=== PATIENT | female | born 1995 | race Caucasian/White ===

== ENCOUNTER 2025-08-25 07:44 | Inpatient (IN) ==
[2025-08-25] MEDS ORDERED: LIDOCAINE 1% LOCAL 20 ML VIAL INFIL PRN (08:02)
[2025-08-25] MEDS ORDERED: OXYTOCIN 30 UNITS/NSS 30 UNITS/500 ML BAG IV PRN ×3 (08:02→20:40)
--- NOTE | 2025-08-25 08:02 | History & Physical Report ---
Date of Service August 25, 2025 Assessment & Plan (1) Encounter for induction of labor: (2) Demyelinating disease: (3) Lupus anticoagulant positive: Plan 30 y/o at 41w 7 with CRISTIAN 08/17/25 as determined by ultrasound who presents today for induction of labor. Rh(+), rubella immune pitocin only vs starting with rainey bulb (in office cervical exam 08/16/25 1.5/75/-2) epidural if desired AROM when indicated IV fluids anticipate . Admission and Anticipated Discharge Date Admission Date: August 25, 2025 History of Present Illness Chief Complaint: induction of labor Primary Care Provider: LINDA Balderas Lorri is a 30 y/o at 41w 09/22 with CRISTIAN 08/17/25 as determined by ultrasound who presents today for induction of labor. (-) contractions; (+) movement; (-) fluid loss; (-) bloody show External FHT and external uterine monitors used; Category I tracing; moderate variability. Had regular appointments with OB. Blood Type A Positive 01/05/25 Antibody Screen NEGATIVE 01/05/25 Hgb 12.8 g/dl (12.0-16.0) 05/25/25 Hct 36.3 % (37.0-47.0) L 05/25/25 MCV 92.9 fL (80.0-100.0) 01/05/25 Plt Count 267 K/uL (130-400) 01/05/25 Rubella IgG Antibody Immune (Immune) 01/05/25 Treponema pallidum Ab Negative (Negative) 05/25/25 Hep Bs Antigen Negative (Negative) 01/05/25 Hepatitis C Antibody Negative (Negative) 01/05/25 HIV 1&2 Ab/P24 Ag 4thGn Negative (Negative) 01/05/25 Glucose 1 Hr 50 gm 134 mg/dl (70-130) H 05/25/25 OB Optional Labs: Chlamydia trachomatis RNA Not Detected (NotDetected) 01/05/25 Neisseria gonorrhoeae RNA Not Detected (NotDetected) 01/05/25 Thyroid Stimulating Hormone (TSH) 1.873 uIu/ml (0.300-4.500) 06/08/24 Allergies Allergy/AdvReac Type Severity Reaction Status Date / Time gluten Allergy Unknown Verified 12/10/25 08:20 pineapple Allergy Itching Verified 08/25/25 08:20 Home Medications Medication Instructions Recorded Confirmed Type famotidine 20 mg tablet (Pepcid) 40 mg PO DAILY 10/15/23 08/25/25 History 21-iron fu-folic acid 1 tab PO DAILY 12/28/24 08/25/25 History [ Complete] Patient History Medical History (Updated 08/25/25 @ 08:18 by Sue Melendez RN) Stomach ulcer Varicella vaccination Mass of left ankle Breast lump in female hormonal-resolved Brain lesion stable- follow up with neuro Surgical History (Updated 08/25/25 @ 08:18 by Sue Melendez, CAROL) S/P foot surgery, left 2023- no hardware Hx of cholecystectomy 2019 Family History Mother Miscarriage Denies family history of Ovarian cancer Prostate cancer Deep vein thrombosis Breast cancer Lung cancer Colorectal cancer Pulmonary embolism Social History (Updated 08/25/25 @ 08:19 by Sue Melendez RN) Smoking Status: Never smoker Second Hand Exposure: No; Do You Dip or Chew Tobacco: No; Hx Alcohol Use: No Hx Substance Use: No Preferred Language: Tuvaluan Communication Ability: Effective Visual Impairment: No Limitations Hearing Ability: Normal Pattern Maker Required: No Beliefs That Will Affect Care: None marital status: marital status details: William Sellers (Bill) [phone]) [phone] Current Living Situation: Spouse Current Living Situation Comment: lives with spouse, cat-spouse changing litter current occupational status: employed current occupation: [employer] at [employer] How many Children do You have: 0 Feels Safe at Home: Yes Safety Concerns: Feels Safe At This Time Childhood Exposure to Second-Hand Smoke: No Diet: gluten free Diet Comment: no formal dx of celiac but gluten free helps sx of h/a, lack of energy, GI caffeine: No during the past year weight has: remained stable Dental Care, Regularly: Yes Physical Activity Frequency: 3-4 Times per Week Physical Activity Frequency Comment: walks, gym Seatbelt Use: always Sunscreen Use: Yes Assistive Devices: None Review of Systems Denies fever, chills, sweats Denies shortness of breath, difficulty breathing, chest pain, palpitations, chest pressure. Denies breast pain. Denies dysuria. Denies headache or changes in vision. Physical Exam Physical Exam: General: Alert, oriented. No acute distress. Cardiac: Regular rate and rhythm, no murmurs/rubs/gallops. Respiratory: CTA BL, no increased work of breathing Abdomen: soft, gravid, cephalic position Lower Extremities: No lower extremity edema or swelling. No deep calf pain. Steve's negative bilaterally Supervising Physician Co-Signing Physician Notes Resident Physician Supervision Note: I interviewed and examined the patient. Discussed with Dr. Ovalle and agree with findings and plan as documented in the note. Any exceptions or clarifications are listed here: Pt is a 30yo who presents for scheduled postdates induction of labor at 41w1d. uncomplicated . Cvx 2.5/80/-2. Plan for pitocin 2x2, defer rainey balloon. Epidural PRN, AROM when able. GBS neg, Rh pos, RI. Anticipate . Documented By: Zulema Ivey MD
[2025-08-25 08:40] LABS: Hematocrit (blood only) 40.4 % (37.0-47.0); Hemoglobin 14.3 g/dL (12.0-16.0); Mean Corpuscular Hemoglobin 32.4 pg (25.0-34.0); Mean Corpuscular Volume 91.6 fL (80.0-100.0); Platelet Count 198 K/uL (130-400); RDW Standard Deviation 43.0 fL (36.4-46.3); Red Blood Count 4.41 M/uL (4.20-5.40); White Blood Count 9.44 K/ul (4.8-10.8)
[2025-08-25] MEDS: LACTATED RINGER'S 1,000 ML IV PRN (09:42)
[2025-08-25] MEDS: OXYTOCIN 30 UNITS/NSS 30 UNITS/500 ML BAG IV PRN (09:47)
[2025-08-25] MEDS: ACETAMINOPHEN 325 MG TAB PO PRN ×2 (13:29→20:57)
--- NOTE | 2025-08-25 14:47 | Labor Progress Brief Note ---
Date of Service August 25, 2025 Subjective Reason For Note: Routine Evaluation Doing well-not feeling too much discomfort with contractions. Review of Systems All systems reviewed & are unremarkable except as noted in HPI & below Assessment & Plan (1) Encounter for induction of labor: Plan: Pt admitted for induction of labor for post-dates. Continue pitocin 2x2 s/p AROM Epidural PRN Admission and Anticipated Discharge Date Admission Date: August 25, 2025 Physical Exam Constitutional: WD/WN, vitals as above Respiratory: normal respiratory effort Psychiatric: Orientation: alert and oriented x 3 Genitourinary: normal external appearance Manual OB Exam: + cervical dilation 3 cm, + cervical effacement 80%, + station -2 and + amniotic fluid clear AROM performed in normal sterile fashion with head well applied to the cervix, cervical exam as above. Return of clear fluid noted. Pt tolerated well. Results & Data Vital Signs (Past 12 Hours) Vital Signs Temp Pulse Resp BP 08/25/25 13:50 104 H 108/75 08/25/25 12:50 99 H 110/74 08/25/25 12:17 103 H 153/91 H 08/25/25 11:00 18 08/25/25 11:00 36.8 C 18 08/25/25 10:51 109 H 127/81 08/25/25 09:50 108 H 118/78 08/25/25 08:09 36.8 C 16 08/25/25 08:05 126 H 121/83 Coding Level of Care Code None Diagnoses Encounter for induction of labor Z34.90
--- NOTE | 2025-08-25 15:54 | Anesthesiology Consultation ---
Date of Service August 25, 2025 Assessment & Plan (1) Encounter for pre-operative examination: Chart Review Chart Review: Acceptable Risk for Labor Epidural History Height/Weight Height: 5 ft 4 in Weight: 94.801 kg Allergies Allergy/AdvReac Type Severity Reaction Status Date / Time gluten Allergy Unknown Verified 08/25/25 08:20 pineapple Allergy Itching Verified 08/25/25 08:20 Medications Home Medications Medication Instructions Recorded Confirmed Last Taken famotidine 20 mg tablet (Pepcid) 40 mg PO DAILY 10/15/23 08/25/25 08/25/25 21-iron fu-folic acid 1 tab PO DAILY 12/28/24 08/25/25 08/24/25 [ Complete] Active Medications Generic Name Dose Route Start Last Admin Trade Name Freq PRN Reason Stop Dose Admin Acetaminophen 650 mg 08/25/25 13:08 08/25/25 13:29 Acetaminophen 325 Mg Tab PO 09/24/25 13:07 650 mg Q4H PRN Administration Headache Lactated Ringer's 1,000 mls @ 125 mls/hr 08/25/25 08:02 08/25/25 15:56 Lr IV 08/27/25 08:01 999 mls/hr .Q8H PRN Administration L&D Protocol Protocol Oxytocin 30 units in 500 mls @ 14 mls/hr 08/25/25 09:20 08/25/25 13:30 Pitocin 30 Units/Nss IV 08/27/25 09:19 0.84 units/hr .Q24H PRN 14 mls/hr Labor Induction/Augmentation Titration Protocol 0.84 UNITS/HR Past Medical History Medical History (Updated 08/25/25 @ 15:59 by William Costa MD) Demyelinating disease Stomach ulcer Varicella vaccination Mass of left ankle Breast lump in female hormonal-resolved Brain lesion stable- follow up with neuro Past Family History Family History Mother Miscarriage x 2 Denies family history of Ovarian cancer Prostate cancer Deep vein thrombosis Breast cancer Lung cancer Colorectal cancer Pulmonary embolism Past Surgical History Surgical History S/P foot surgery, left 2023- no hardware Hx of cholecystectomy 2019 Social History Smoking Status: Never smoker Do You Dip or Chew Tobacco: No Hx Alcohol Use: No Hx Substance Use: No Physical Exam Vital Signs Last Vital Signs Temp 36.8 C 08/25/25 11:00 Pulse 75 08/25/25 15:51 Resp 18 08/25/25 11:00 BP 122/69 08/25/25 15:50 Pulse Ox 99 08/25/25 15:51 Testing Laboratory Results 08/25/25 08:25 Blood Type A Positive 08/25/25 08:25 Antibody Screen NEGATIVE 08/25/25 08:25
[2025-08-25] MEDS: BUPIVACAINE 0.25% PF 30 ML VIAL ONE (16:25)
[2025-08-25] MEDS: LIDOCAINE 2%/EPINEPHRINE 1:200,000 20 ML PF ONE (16:25)
[2025-08-25] MEDS: fentANYL 2 MCG/ML BUPIVacaine 0.125%-NSS 100ML BAG ONE (16:25)
[2025-08-25] MEDS: SODIUM CHLORIDE 0.9% PF INJ 10 ML VIAL ONE (16:28)
[2025-08-25] MEDS ORDERED: SODIUM CHLORIDE 0.9% PF INJ 10 ML VIAL EPI PRN (16:29)
[2025-08-25] MEDS ORDERED: ROPIVACAINE 0.5% PF 5 MG/ML 20 ML VIAL EPI PRN (16:29)
[2025-08-25] MEDS ORDERED: BUPIVACAINE 0.25% PF 30 ML VIAL EPI PRN (16:29)
[2025-08-25] MEDS ORDERED: NALOXONE HCL 1 MG in SODIUM CHLORIDE 0.9% 1,000 ML IV PRN (16:29)
[2025-08-25] MEDS ORDERED: NALOXONE HCL 0.4 MG/1 ML VIAL/CARP IV PRN (16:29)
[2025-08-25] MEDS ORDERED: ONDANSETRON INJ 2 MG/ML 2 ML VIAL IV PRN (16:29)
[2025-08-25] MEDS ORDERED: fentANYL 2 MCG/ML BUPIVacaine 0.125%-NSS 100ML BAG EPI PRN (16:29)
[2025-08-25] MEDS ORDERED: LIDOCAINE 2% MPF LOCAL 5 ML VIAL EPI PRN (16:29)
[2025-08-25] MEDS: BUPIVACAINE 0.25% PF 30 ML VIAL EPI STA (16:38)
[2025-08-25] MEDS: SODIUM CHLORIDE 0.9% PF INJ 10 ML VIAL EPI STA (16:39)
[2025-08-25] MEDS: LIDOCAINE 2%/EPINEPHRINE 1:200,000 20 ML PF EPI STA (16:39)
--- NOTE | 2025-08-25 20:36 | Delivery Summary ---
Vaginal Delivery Summary Date of Service August 25, 2025 Vaginal Delivery Summary and 2nd Degree LAC Pre-delivery diagnoses: IUP at 41 weeks 1 day Post-delivery diagnoses: Same Procedure: Spontaneous vaginal delivery Surgeon: Zulema Ivey MD Complications: none Findings: Viable male . Apgars: 8/9. Weight pending, please see nursery records Estimated QBL: 64 cc Description of delivery: The patient progressed to complete with epidural anesthesia. She then began to push. She spontaneously vaginally delivered a viable from the cephalic presentation. The head delivered followed without delay by anterior shoulder, posterior shoulder, then the body. No nuchal. The baby was placed on mother's abdomen and a spontaneous cry was heard. Delayed cord clamping was employed, and the cord was doubly clamped and cut. Cord blood was obtained. The placenta was delivered spontaneously intact with a 3-vessel cord. The uterus and vagina were swept of clots and debris. IV pitocin was given. The uterus became firm. The cervix, vagina, and perineum were inspected. 2nd degree laceration was repaired with 3-0 chromic under epidural anesthesia. Excellent hemostasis was observed The mother and baby are recovering in stable and good condition in the room. Sponge, needle and instrument counts were correct x 2. [facility] Vaginal Delivery Charge Delivery Type Details: and 2nd Degree LAC
[2025-08-25] MEDS ORDERED: HYDROCORTISONE ACETATE 25 MG SUPP PR PRN (20:40)
[2025-08-25] MEDS: IBUPROFEN 600 MG TAB PO PRN (20:56)
[2025-08-25] MEDS: DOCUSATE SODIUM 100 MG CAP PO SCH (20:56)
[2025-08-25] MEDS: BENZOCAINE 20% SPRY 85 APPLN/85 GM CAN EXT PRN (20:57)
[2025-08-25] MEDS: DIPHTHER/TETAN/PERTUS Vaccine (Tdap, Adol/Adult) 0.5mL IM ONE (21:03)
--- NOTE | 2025-08-25 21:12 | Anesthesia Procedure Note ---
Date of Service August 25, 2025 Anesthesia Post Epidural Note Vital Signs Vital Signs: Temp Pulse Resp BP Pulse Ox 36.9 C 101 H 20 123/68 95 08/25/25 18:55 08/25/25 21:00 08/25/25 21:00 08/25/25 21:00 08/25/25 20:56 Pain Intensity Episiotomy/Laceration: Pain Intensity: 4 Notes Mental Status: alert / awake / arousable and participated in evaluation Nausea / Vomiting: adequately controlled Pain: adequately controlled Airway Patency, RR, SpO2: stable & adequate BP & HR: stable & adequate Hydration State: stable & adequate Neuraxial Anesthesia: was administered and sensory block is resolving Anesthetic Complications: no major complications apparent Epidural: Removed without complications and With tip intact
[2025-08-25] MEDS: LACTATED RINGER'S 1,000 ML IV SCH (23:07)
--- NOTE | 2025-08-26 06:27 | Obstetrical Progress Note ---
Date of Service August 26, 2025 Assessment & Plan (1) examination following vaginal delivery: Plan 30 y/o ppd #1 s/p . uncomplicated. Feels well today. Vital signs stable Continue post- care Encourage ambulation and Pain controlled with ibuprofen Hgb stable Anticipate home discharge tomorrow, follow up with Dr. Ivey in 6 weeks. Admission and Anticipated Discharge Date Admission Date: August 25, 2025 Supervising Physician Co-Signing Physician Notes Resident Physician Supervision Note: I interviewed and examined the patient. Discussed with Dr. Ovalle and agree with findings and plan as documented in the note. Any exceptions or clarifications are listed here: Pt is PPD1 from , doing well, meeting milestones. . VS wnl. Uterus firm at umbilicus. Continue routine care, likely DC home tomorrow. Documented By: Zulema Ivey MD Subjective 30 y/o ppd #1 s/p . uncomplicated. Ambulation: ambulating normally Voiding: no voiding problems Passing Gas:: Yes Diet Tolerance:: regular diet Lochia:: Small Feeding Type:: breast Current Pain Level: 3/10 Resting comfortably this AM in NAD. Denies [place], CP, SOB, N/V/D, LE pain/swelling. Physical Exam Physical Exam: General: patient resting comfortably, NAD, non-toxic in appearance, A&Ox4, answers questions appropriately. Skin: warm, dry, intact HEENT: atraumatic, normocephalic, anicteric sclera, conjunctiva without injection, moist mucus membranes. Heart: clinically well perfused Lungs: equal rise & fall of chest, normal work of breathing, no respiratory distress Abd: +BS, soft, NT/ND, uterine fundus firm at umbilicus Ext: no LE edema or deep calf pain, Steve's neg. Neuro: no focal neurologic deficits, moving all extremities. Results & Data Vital Signs (Past 12 Hours) Vital Signs Temp Pulse Pulse Resp BP BP Pulse Ox 08/26/25 03:40 36.4 C L 92 H 20 109/68 97 08/25/25 23:00 36.6 C 96 H 18 116/78 97 08/25/25 22:30 36.8 C 20 08/25/25 22:30 103 H 121/70 08/25/25 22:00 20 08/25/25 22:00 109 H 113/70 08/25/25 21:45 114 H 103/87 08/25/25 21:30 36.8 C 18 08/25/25 21:30 103 H 117/81 08/25/25 21:15 20 08/25/25 21:15 103 H 124/61 08/25/25 21:00 20 08/25/25 21:00 101 H 123/68 08/25/25 20:56 103 H 95 08/25/25 20:51 104 H 97 08/25/25 20:46 102 H 98 08/25/25 20:45 18 08/25/25 20:45 100 H 119/79 08/25/25 20:41 106 H 97 08/25/25 20:36 108 H 96 08/25/25 20:31 104 H 97 08/25/25 20:30 20 08/25/25 20:30 105 H 139/77 08/25/25 20:26 127 H 97 08/25/25 20:21 123 H 98 08/25/25 20:16 113 H 94 08/25/25 20:11 109 H 99 08/25/25 20:06 132 H 87 L 08/25/25 20:02 109 H 83 L 08/25/25 20:01 107 H 100 08/25/25 19:58 110 H 126/75 08/25/25 19:56 99 08/25/25 19:56 110 H 08/25/25 19:56 103 H 89 L 08/25/25 19:51 102 H 99 08/25/25 19:46 117 H 99 08/25/25 19:44 114 H 126/100 08/25/25 19:41 110 H 100 08/25/25 19:36 114 H 100 08/25/25 19:31 106 H 98 08/25/25 19:27 103 H 107/69 08/25/25 19:26 99 H 100 08/25/25 19:21 100 H 98 08/25/25 19:16 99 H 98 08/25/25 19:13 90 113/72 08/25/25 19:11 102 H 98 08/25/25 19:06 96 H 99 08/25/25 19:01 98 H 99 08/25/25 19:00 18 08/25/25 19:00 18 08/25/25 18:58 103 H 135/84 08/25/25 18:56 104 H 100 08/25/25 18:55 36.9 C 18 08/25/25 18:51 104 H 97 08/25/25 18:46 105 H 99 08/25/25 18:42 115 H 108/66 08/25/25 18:41 99 H 98 08/25/25 18:39 103 H 87 L 08/25/25 18:36 100 H 98 08/25/25 18:31 104 H 98 08/25/25 18:30 20 08/25/25 18:30 20 08/25/25 18:28 103 H 108/72 O2 Del Method 08/26/25 03:40 Room Air 08/25/25 23:00 Room Air 08/25/25 22:30 08/25/25 22:30 08/25/25 22:00 08/25/25 22:00 08/25/25 21:45 08/25/25 21:30 08/25/25 21:30 08/25/25 21:15 08/25/25 21:15 08/25/25 21:00 08/25/25 21:00 08/25/25 20:56 08/25/25 20:51 08/25/25 20:46 08/25/25 20:45 08/25/25 20:45 08/25/25 20:41 08/25/25 20:36 08/25/25 20:31 08/25/25 20:30 08/25/25 20:30 08/25/25 20:26 08/25/25 20:21 08/25/25 20:16 08/25/25 20:11 08/25/25 20:06 08/25/25 20:02 08/25/25 20:01 08/25/25 19:58 08/25/25 19:56 08/25/25 19:56 08/25/25 19:56 08/25/25 19:51 08/25/25 19:46 08/25/25 19:44 08/25/25 19:41 08/25/25 19:36 08/25/25 19:31 08/25/25 19:27 08/25/25 19:26 08/25/25 19:21 08/25/25 19:16 08/25/25 19:13 08/25/25 19:11 08/25/25 19:06 08/25/25 19:01 08/25/25 19:00 08/25/25 19:00 08/25/25 18:58 08/25/25 18:56 08/25/25 18:55 08/25/25 18:51 08/25/25 18:46 08/25/25 18:42 08/25/25 18:41 08/25/25 18:39 08/25/25 18:36 08/25/25 18:31 08/25/25 18:30 08/25/25 18:30 08/25/25 18:28
[2025-08-26] MEDS: PRENATAL VITAMIN 1 TAB PO SCH (08:37)
--- NOTE | 2025-08-27 07:27 | Obstetrical Progress Note ---
Date of Service August 27, 2025 Assessment & Plan (1) examination following vaginal delivery: Day 2 status post vaginal delivery. Patient doing well and stable for discharge. Subjective Ambulation: ambulating normally Voiding: no voiding problems Passing Gas:: Yes Diet Tolerance:: regular diet Lochia:: Moderate Physical Exam Constitutional WD/WN, vitals as above Respiratory normal respiratory effort; no respiratory distress and no labored breathing Cardiovascular Extremities: no calf tenderness Gastrointestinal (Abdomen) Inspection/Auscultation: abdomen normal to inspection; abdomen not distended Percussion/Palpation: abdomen soft; abdomen nontender, no guarding and abdomen not rigid Genitourinary OB Exam Abdomen: + fundal height Fundus: + firm and + relation to umbilicus (Below); not tender or not boggy Results & Data Vital Signs (Past 12 Hours) Vital Signs Temp Pulse Resp BP Pulse Ox O2 Del Method 08/26/25 23:09 36.7 C 89 18 112/81 97 Room Air 08/26/25 20:35 36.8 C 100 H 20 116/82 97 Room Air
[2025-08-27 07:54] VITALS: BP 113/78; PULSE 94; RESP 16; TEMP 98.4; O2SAT 95
== END 2025-08-27 14:30 | disposition home or self-care (01) | DRG 806 ==
LOC: 4S1 07:44 → 4E2 22:58